=== PATIENT | male | born 1935 | race Caucasian/White ===

== ENCOUNTER 2023-05-05 11:00 | Outpatient (CLI) | payer MEDICARE, SELFPAY ==
--- NOTE | 2023-05-05 11:15 | CRLHL7_ITS ---
For Patients: As a result of the Century Cures Act, medical imaging exams and procedure reports are released immediately into your electronic medical record. You may view this report before your referring provider. If you have questions, please contact your health care provider. INDICATION: Dysphagia,couple choking episode TECHNIQUE: Modified barium swallow. Fluoroscopic time 110.8 seconds. FINDINGS/IMPRESSION: Flash laryngeal penetration occurred without aspiration. Normal epiglottis retroversion. No obstruction to the flow of barium. No diverticulum. Dictated by Macario Holbrook MD @ 05/06/2023 9:25:49 AM (Electronically Signed)
== END 2023-05-05 11:01 | disposition home or self-care (01) ==
PROVIDERS: PCP Family Medicine; Visit Provider Family Medicine
DX: R13.10 Dysphagia, unspecified (principal); R09.89 Other specified symptoms and signs involving the circulatory and respiratory systems
CPT/HCPCS: 74230; 92611